=== PATIENT | female | born 1990 | race Caucasian/White ===

== ENCOUNTER 2022-09-27 22:22 | Emergency (ER) | payer OTHER ==
--- OUTSIDE RECORDS SUMMARY | 2022-09-27 22:26 | XMS REPORT | Continuity of Care Document ---
:1990 Author Organization [facility] t Address [address] [place] [address] Care Team Providers Name Role Phone JUAN SHAH Attending Clinician Unavailable JEROD GABRIEL D.O. Attending Clinician Unavailable CHON MENSAH M.D. 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 Medications Ordered Filled Start Stop Current Ordering Indication Dosage Frequency Signature Comments Components Source Medication Medication Date Date Medication? Clinician (SIG) Name Name Vitamin D Vitamin D 2017-05 Yes MOHSEN Take 1 UT (Ergocalcif (Ergocalcif 0-19 BA N.P. capsule Physici brinda) 15802 brinda) 23779 00:00: two times ans UNIT Oral UNIT Oral 00 per week Capsule Capsule Procedures Procedure Date / Time Performed Performing Clinician [facility] e [LH] CBC (without 2018-03-10 00:00:00 [facility] Physici ans differential) [QL] COMPREHENSIVE METABOLIC 2018-03-10 00:00:00 [facility] PANEL W/O eGFR [QLH] FOLATE, SERUM 2018-03-10 00:00:00 [facility] [QLH] HEMOGLOBIN A1c 2018-03-10 00:00:00 [facility] [QLH] IRON, TOTAL 2018-03-10 00:00:00 [facility] ans [QLH] LIPID PANEL 2018-03-10 00:00:00 [facility] ans [QLH] PTH, INTACT (WITHOUT 2018-03-10 00:00:00 U [facility] CALCIUM) [QLH] TSH, 3RD GENERATION 2018-03-10 00:00:00 [facility] [QLH] VITAMIN A (RETINOL) 2018-03-10 00:00:00 [facility] [QLH] VITAMIN B1, WHOLE 2018-03-10 00:00:00 [facility] BLOOD [QLH] VITAMIN B12 2018-03-10 00:00:00 [facility] ans [QLH] VITAMIN D, 25-HYDROXY, 2018-03-10 00:00:00 [facility] LC/MS/MS [QLH] VITAMIN E (TOCOPHEROL) 2018-03-10 00:00:00 [facility] Encounters Start End Encounter Admission Attending Care Care Encounter Source Date/Time Date/Time Type Type Clinicians Facility Department ID 2021-04-15 2021-04-15 Emergency E JUAN SHAH [facility] [id number] 04:31:00 05:37:00 [facility] 2018-03-10 2018-03-10 DMITRIY Dacosta [facility] [id number] [place] 09:00:00 09:00:00 t; JEROD, Surgery Physi awa GABRIEL D.O. ans JEROD D.OAntoinette 2017-11-10 2017-11-10 DMITRIY Dacosta [facility] [id number] [place] 13:15:00 13:15:00 t; JEROD, Physi awa GABRIEL D.O. ans JEROD, D.O. 2017-10-06 2017-10-06 DMITRIY Dacosta [facility] [id number] [place] 13:00:00 13:00:00 t; JEROD, Physi awa GABRIEL D.O. ans JEROD, D.O. 2017-08-26 2017-08-[facility] UTP [id number] [place] 13:30:00 13:30:00 t; CHON MENSAH P hysici KULVINDER, M.D. ans M.D. 2017-08-12 2017-08-12 [facility] MA[facility]NA DMITRIY UTP [id number] [place] 13:00:00 13:00:00 t; CHON MENSAH P hysici KULVINDER, M.D. ans M.D. 2017-07-07 2017-07-07 [facility] JEOVANNYIN-RIKLI UTP UTP [id number] [place] 09:00:00 09:00:00 t; ESPINOZA Antoine Phys ici [address] ans INESPINOZA 2017-06-23 2017-06-23 [facility] WOLIN-RIKLI UTP UTP [id number] [place] 09:30:00 09:30:00 t; ESPINOZA Antoine Phys ici [address] ans INESPINOZA 2017-05-23 2017-05-23 [facility] WOLIN-RIKLI UTP UTP [id number] [place] 14:00:00 14:00:00 t; ESPINOZA Antoine Phys ici [address] ans INESPINOZA 2017-04-24 2017-04-24 [facility] JEOVANNYIN-RIKLI UTP UTP [id number] [place] 10:30:00 10:30:00 t; ESPINOZA Antoine Phys ici [address] ans INESPINOZA 2017-03-21 2017-03-21 [facility] MAKENNA [facility] UTP [id number] [place] 11:00:00 11:00:00 t; CHON MENSAH P hysici KULVINDER, M.D. ans M.D. Results Test Description Test Time Test Comments Results Result Comments Source [LH] CBC (without differential) 2018-03-10 10:26:01 Test Item Value Reference Range Interpretation Comme nts WBC (test code = 6690-2) 6.4 {K/CMM} 3.7-10.4 RBC (test code = 789-8) 4.61 {M/CMM} 4.20-5.40 Hgb (test code = 718-7) 14.1 g/dl 12.0-16.0 Hct (test code = 91176-1) 41.2 % 36.0-48.0 MCV (test code = 787-2) 89.2 fL 80.0-98.0 MCH (test code = 785-6) 30.6 pg 27.0-31.0 MCHC (test code = 786-4) 34.3 g/dl 32.0-36.0 RDW (test code = 788-0) 13.0 % 11.5-14.5 Platelet (test code = 10199-9) 287 {K/CMM} 133-450 Mean Platelet Volume (test code = 02802-1) 8.8 fL 7.4-10.4 [facility]] CMP [id number] 10:26:01 Test Item Value Reference Range Interpretation Comments Sodium Level 142 {mEq/l} 135-145 (test code = 2951-2) Potassium Level 4.8 {mEq/l} 3.5-5.1 (test code = 2823-3) Chloride Level 107 {mEq/l} 95-109 (test code = 5-0) Carbon Dioxide 27 {mEq/l} 24-32 (test code = 8-9) AGAP (test code = 12.8 {mEq/l} 10.0-20.0 49134-6) Glucose Lvl (test 89 mg/dl 70-99 Adult refe rence range code = 2345-7) values reflec t the clinical guidel inesof the [place] Diabet es Association. Creatinine Lvl 0.70 mg/dl 0.50-1.40 (test code = 2160-0) Blood Urea 8 mg/dl 7-22 Nitrogen (test code = 3094-0) BUN/Creatinine 11 6-25 Ratio (test code = 3097-3) Total Protein 7.3 g/dl 6.4-8.4 (test code = 2885-2) Albumin Lvl (test 4.0 g/dl 3.5-5.0 code = 1751-7) Globulin (test 3.3 g/dl 2.7-4.2 code = 16564-8) A/G Ratio (test 1.2 0.7-1.6 code = 1759-0) Calcium Level 9.8 mg/dl 8.5-10.5 Total (test code = 37498-1) ALT (test code = 55 u/l 0-65 1743-4) AST; Above High 39 u/l 0-37 Threshold (test code = 90527-7) Alk Phos (test 68 u/l 39-136 code = 1783-0) Bili Total (test 0.5 mg/dl 0.2-1.3 code = 1974-) eGFR (test code = 120 The eGFR i s calculated 00408-6) {ML/MIN/1.7} using the CKD-E PI formula. In mos t young, healthyindividu als the eGFR will be >9 0 mL/min/1.73m2. The eGFR declines with a ge. AneGFR of 60-89 may be normal in some population s, particularly th e elderly, forwhom the CKD -EPI formula has not been extensively joesph idated. Use of the eGFR isnot recommended in the following populations:Ind ividuals with unstable c reatinine concentrations, including patient s and those with seri ous co-morbid conditions.Jodi ents with extremes in mus sofía mass or diet.The irene a above are obtained fr om the National Kidney Disease Education Progr am(NKDEP) which angela colon recommends that when the eGFR is used in patientswith ex tremes of body mass index for purposes of ana g dosing, the eGFR should be multiplied by t he estimated BMI. [facility]] FOLATE, [id number] 10:26:01 Test Item Value Reference Range Interpretation Comments Folate Level (test code = 2284-8) 3.9 ng/ml >=3.0 [facility]] IRON, [id number] 10:26:01 Test Item Value Reference Range Interpretation Comments Iron (test code = 2498-4) 81 ug/dL 30-160 [facility]] LIPID [id number] 10:26:01 Test Item Value Reference Range Interpretation Comments Chol (test code = 2093-3) 143 mg/dl <=199 Trig (test code = 2571-8) 139 mg/dl <=149 HDL Cholesterol; Below Low 40 mg/dl >=61 Threshold (test code = 2084-9) CHD Risk; Below Low Threshold (test 3.58 3.90-5.80 code = 29245-2) LDL (test code = 31649-7) 75 mg/dl <=99 VLDL (test code = VLDL) 28 [facility][QL] TSH, 3RD [id number] 10:26:01 Test Item Value Reference Range Interpretation Comments TSH (test code = 21002-2) 1.550 {uIU/ml} 0.360-3.740 [facility][QL] VITAMIN [id number] 10:26:01 Test Item Value Reference Range Interpretation Comments Vitamin B12 Level (test code = 372 pg/ml 254-1320 2132-9) [facility]] PTH, INTACT (WITHOUT CALCIUM)2018-03-10 10:26:01 Test Item Value Reference Range Interpretation Comments Parathyroid Hormone Intact; Above 97.2 pg/ml 18.4-80.1 High Threshold (test code = 2731-8) [facility][QL] HEMOGLOBIN [id number] 10:26:01 Test Item Value Reference Range Interpretation Comments Hemoglobin A1c (test code = 4548-4) 5.1 % <=5.6 [facility]] VITAMIN D, 25-HYDROXY, LC/MS/[id number] 10:26:01 Test Item Value Reference Range Interpretation Comments Vitamin D, 25-OH, 20.9 ng/ml 30.0-100.0 Reference range is based Total (test code on recommen dations in the = Vitamin D, EndocrineSociet y Clinical 25-OH, Total) Practice Guide line (J Clin Endocrinol Takkw4636;96:19 11-1930) [facility][H] Vitamin E [id number] 10:26:01 Test Item Value Reference Range Interpretation Comments Alpha-Tocoph 7.0 mg/L 5.9-19.4 brinda (test code = Alpha-Tocoph brinda) Gamma-Tocoph 1.0 mg/L 0.7-4.9 Reference inter vals for alpha and brinda (test gamma-tocophero ldetermined from code = National Health and Nutrition Gamma-Tocoph ExaminationSurv ey, 3675-1253. brinda) Individuals wit h alpha-tocopherol levelsless than 5.0 mg/L are considered esmer min E deficient.This test was developed and its perform ance characteristics determined by [facility]. It has not been cleared orapproved by t Food and Drug Administration. Performed At: [facility] [id number] Ragsdale MD Ph :[phone] [facility][H] Vit [id number] 10:26:01 Test Item Value Reference Range Interpretation Comments Vitamin A 31.9 ug/dL 31.2-89.1 Reference inter vals for vitamin Level (test A determined fr om code = NationalHealth and Nutrition Vitamin A Examination Fabiana vey, Level) 8084-3946.Indiv iduals with vitamin A less than 20 ug/dL areconsidered v itamin A deficient and t hose with serumconcentrat ions less than 10 ug/dL are co nsidered severelydeficie nt.This test was developed and i ts performance characteristics determined by [facility]. It has not been cleared orappro gilberto by the Food and Drug Administration. Performed At: [facility] [address] [place], [place] [id number] Ragsdale MD Ph:[phone] [facility]
--- NOTE | 2022-09-27 23:03 | EDPHYS ---
Physician Documentation [facility] Name: Yareli Reynoso Age: 31 yrs Sex: Female : 1990 Arrival Date: 09/27/2022 Time: 22:22 Bed 12 Private MD: ED Physician Javier Landry HPI: 09/27 22:31 This 31 yrs old Black Female presents to ER via Unassigned with complaints of sp4 Toothache, Headache. 22:57 Very pleasant 31-year-old female presents for acute moderate to severe pain right lower sp4 dental area starting today. Patient has a history of right lower molar decay associated with prior history of pulpitis. Patient states she was unable to get in with a dentist lately. No other complaints, no facial swelling. 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 - Social history:: Patient/guardian denies using alcohol, street drugs, IV drugs, caffeine, over the counter diet medications, tobacco products, , Smoking status: Patient denies any tobacco usage or history of. - Family history:: not pertinent. ROS: 22:57 Constitutional: Negative for fever, chills, and weight loss, Eyes: Negative for injury, sp4 pain, redness, and discharge, ENT: Negative for injury, and discharge, positive for right lower molar dental pain and decay. Tooth #31 dental pain and decay Neck: Negative for injury, pain, and swelling, Cardiovascular: Negative for chest pain, palpitations, and edema, Respiratory: Negative for shortness of breath, cough, wheezing, and pleuritic chest pain, Abdomen/GI: Negative for abdominal pain, nausea, vomiting, diarrhea, and constipation, Back: Negative for injury and pain, : Negative for injury, bleeding, discharge, and swelling, MS/Extremity: Negative for injury and deformity, Skin: Negative for injury, rash, and discoloration, Neuro: Negative for headache, weakness, numbness, tingling, and seizure, Psych: Negative for depression, anxiety, Allergy/Immunology: Negative for hives, rash, and allergies Endocrine: Negative for neck swelling, polydipsia, polyuria, polyphagia, and weight changes Hematologic/Lymphatic: Negative for swollen nodes, abnormal bleeding, and unusual bruising Exam: 22:57 Constitutional: This is a well developed, well nourished patient who is awake, alert, sp4 and in no acute distress. Head/Face: Normocephalic, atraumatic. Eyes: Pupils equal round and reactive to light, extra-ocular motions intact. Lids and lashes normal. Conjunctiva and sclera are not injected. Cornea within normal limits. Periorbital areas with no swelling, redness, or edema. ENT: Nares patent. No nasal discharge, no septal abnormalities noted. Tympanic membranes are normal and external auditory canals are clear. Oropharynx with no redness, swelling, or masses, exudates, or evidence of obstruction, uvula midline. Mucous membranes moist. Right lower molar decayed that is moderate to severe, tooth #30 and 31 moderate to severe dental decay signs of pulpitis. No sign of drainable gingival abscess Neck: Trachea midline, no thyromegaly or masses palpated, and no cervical lymphadenopathy. Supple, full range of motion without nuchal rigidity, or vertebral point tenderness. No Meningismus. Chest/axilla: Normal chest wall appearance and motion. Nontender with no deformity. No lesions are appreciated. Cardiovascular: Regular rate and rhythm with a normal S1 and S2. No gallops, murmurs, or rubs. Normal PMI, no JVD. No pulse deficits. Respiratory: Lungs have equal breath sounds bilaterally, clear to auscultation and percussion. No rales, rhonchi or wheezes noted. No increased work of breathing, no retractions or nasal flaring. Abdomen/GI: Soft, non-tender, with normal bowel sounds. No distension or tympany. No guarding or rebound. No evidence of tenderness throughout. Back: No spinal tenderness. No costovertebral tenderness. Skin: Warm, dry with normal turgor. Normal color with no rashes, no lesions, and no evidence of cellulitis. MS/ Extremity: Pulses equal, no cyanosis. Neurovascular intact. Full, normal range of motion. Neuro: Awake and alert, GCS 15, oriented to person, place, time, and situation. Cranial nerves II-XII grossly intact. Motor strength 5/5 in all extremities. Sensory grossly intact. Psych: Awake, alert, with orientation to person, place and time. Behavior, mood, and affect are within normal limits Vital Signs: 23:06 Pulse 80; Resp 16; Temp 97.9(O); Pulse Ox 100% ; Weight 113.4 kg; Height 5 ft. 10 in. ; vg1 Pain 6/10; 23:06 Body Mass Index 35.87 (113.40 kg, 177.8 cm) vg1 23:06 Pain Scale: Adult vg1 MDM: 22:32 Patient medically screened. sp4 22:57 Differential diagnosis: dental caries, gingivitis, dental abscess, gingivostomatitis, sp4 Acute dental abscess. Data reviewed: vital signs, nurses notes. ED course: Right lower molar decayed tooth #30 and 31, with signs of pulpitis tooth #31. Will offer p.o. Keflex twice a day for 10 days. I will advised to visit oral surgeon for permanent dental extraction tooth #30 and 31. Administered Medications: 23:37 Drug: Ketorolac IM 60 mg Route: IM; Site: left ventrogluteal; as6 23:37 Follow up: Response: No adverse reaction as6 23:37 Drug: Rocephin (cefTRIAXone) IM 1 grams Route: IM; Site: left ventrogluteal; as6 23:37 Follow up: Response: No adverse reaction as6 23:37 Drug: traMADol PO 100 mg Route: PO; as6 23:37 Follow up: Response: No adverse reaction as6 23:37 Drug: Ondansetron PO 4 mg Route: PO; as6 23:37 Follow up: Response: No adverse reaction as6 Disposition Summary: 09/27/22 23:03 Discharge Ordered Location: Home sp4 Condition: Stable sp4 Problem: new sp4 Symptoms: have improved sp4 Diagnosis - Acute pulpitis, acute gingivitis, dental decay, dental pain, dental caries sp4 Followup: sp4 - With: Yasir Giraldo DDS - When: 1 - 2 days - Reason: Recheck today's complaints Discharge Instructions: - Discharge Summary Sheet sp4 - Dental Caries, Adult, [id number] sp4 Forms: - Antibiotic Education sp4 - Prescription Opioid Use sp4 Prescriptions: - Cephalexin 500 mg Oral Capsule - take 1 capsule by ORAL route every 12 hours for 10 days; 20 capsule; Refills: sp4 0, Product Selection Permitted - Zofran 4 mg Oral Tablet - take 1 tablet by ORAL route every 8 hours As needed; 30 tablet; Refills: 0, sp4 Product Selection Permitted - Tramadol 50 mg Oral Tablet - take 1 tablet by ORAL route every 8 hours as needed; 30 tablet; Refills: 0, sp4 Product Selection Permitted Signatures: Dispatcher [employer] Sheela Swanson RN RN vg1 Tye Caldera RN RN as6 Javier Landry MD MD sp4
[2022-09-27] MEDS ORDERED: CEFTRIAXONE 1000 MG/VIAL ONE (23:32)
[2022-09-27] MEDS ORDERED: LIDOCAINE 1% MPF 2 ML AMPULE ONE (23:32)
[2022-09-27] MEDS ORDERED: KETOROLAC 30 MG/ML INJ ONE (23:32)
[2022-09-27] MEDS ORDERED: TRAMADOL HCL 50 MG TAB ONE (23:32)
[2022-09-27] MEDS ORDERED: ONDANSETRON 4 MG (ODT) TAB ONE (23:33)
--- NOTE | 2022-09-27 23:44 | ER ---
Nurse's Notes [facility] Name: Yareli Reynoso Age: 31 yrs Sex: Female : 1990 Arrival Date: 09/27/2022 Time: 22:22 Bed 12 Private MD: Diagnosis: Acute pulpitis, acute gingivitis, dental decay, dental pain, dental caries Presentation: 09/27 23:06 Chief complaint: Patient states: Right jaw/tooth pain that began today around 2029, vg1 stated pain radiates to Right ear and right side of head with nausea. Coronavirus screen: Vaccine status: Patient reports receiving the 2nd dose of the covid vaccine. Client denies travel out of the [place] in the last 14 days. Ebola Screen: Patient negative for fever greater than or equal to 101.5 degrees Fahrenheit, and additional compatible Ebola Virus Disease symptoms Patient denies exposure to infectious person. Patient denies travel to an Ebola-affected area in the 21 days before illness onset. Initial Sepsis Screen: Does the patient meet any 2 criteria? No. Patient's initial sepsis screen is negative. Does the patient have a suspected source of infection? No. Patient's initial sepsis screen is negative. Risk Assessment: Do you want to hurt yourself or someone else? Patient reports no desire to harm self or others. Onset of symptoms was September 27, 2022. 23:06 Method Of Arrival: Ambulatory vg1 23:06 Acuity: KLEVER 4 vg1 Triage Assessment: 23:11 General: Appears uncomfortable, Behavior is cooperative. Pain: Complains of pain in vg1 mouth Pain currently is 6 out of 10 on a pain scale. EENT: Reports pain in lower right first molar. 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 - Social history:: Patient/guardian denies using alcohol, street drugs, IV drugs, caffeine, over the counter diet medications, tobacco products, , Smoking status: Patient denies any tobacco usage or history of. - Family history:: not pertinent. Screenin:38 [facility] ED Fall Risk Assessment (Adult) Score/Fall Risk Level 0 - 2 = Low Risk. Abuse as6 screen: Denies threats or abuse. Denies injuries from another. Nutritional screening: No deficits noted. Tuberculosis screening: No symptoms or risk factors identified. Vital Signs: 23:06 Pulse 80; Resp 16; Temp 97.9(O); Pulse Ox 100% ; Weight 113.4 kg; Height 5 ft. 10 in. ; vg1 Pain 6/10; 23:06 Body Mass Index 35.87 (113.40 kg, 177.8 cm) vg1 23:06 Pain Scale: Adult vg1 ED Course: 22:27 Patient arrived in ED. ja2 22:31 Javier Landry MD is Attending Physician. sp4 23:02 Yasir Giraldo DDS is Referral Physician. sp4 23:11 Triage completed. vg1 23:11 Arm band placed on. vg1 23:38 Bed in low position. Call light in reach. as6 23:38 No provider procedures requiring assistance completed. Patient did not have IV access as6 during this emergency room visit. Administered Medications: 23:37 Drug: Ketorolac IM 60 mg Route: IM; Site: left ventrogluteal; as6 23:37 Follow up: Response: No adverse reaction as6 23:37 Drug: Rocephin (cefTRIAXone) IM 1 grams Route: IM; Site: left ventrogluteal; as6 23:37 Follow up: Response: No adverse reaction as6 23:37 Drug: traMADol PO 100 mg Route: PO; as6 23:37 Follow up: Response: No adverse reaction as6 23:37 Drug: Ondansetron PO 4 mg Route: PO; as6 23:37 Follow up: Response: No adverse reaction as6 Medication: 23:38 VIS not applicable for this client. as6 Outcome: 23:03 Discharge ordered by . sp4 23:39 Discharged to home ambulatory. as6 23:39 Condition: stable 23:39 Discharge instructions given to patient, Instructed on discharge instructions, follow up and referral plans. medication usage, Demonstrated understanding of instructions, follow-up care, medications, Prescriptions given X 3. 23:43 Patient left the ED. as6 Signatures: Sheela Nicholas RN RN vg1 Dede Sawant Ashby, CORINA RN as6 Javier Landry MD MD sp4
[2022-09-27 23:48] VITALS: TEMP 97.9; O2SAT 100
== END 2022-09-27 23:43 | disposition home or self-care (01) ==
LOC: ER 22:22
DX: K02.9 Dental caries, unspecified (principal); K04.01 Reversible pulpitis; K05.00 Acute gingivitis, plaque induced; Z88.6 Allergy status to analgesic agent
CPT/HCPCS: 96372; 99284; Q0162; J0696